=== PATIENT | female | born 1980 | race Caucasian/White ===

== ENCOUNTER 2016-04-18 21:38 | Emergency (ER) | payer MEDICAID, OTHER ==
[~2016-04-18] VITALS: Ht 154.9 cm; Wt 102.0 kg
[~2016-04-18 21:38] MED LIST: HUMA100I SC; LANTINJ SQ; LANTUS2P SC
[2016-04-18 21:41] VITALS: BP 179/89; PULSE 121; RESP 16; TEMP 97.8; O2SAT 96
== END 2016-04-19 00:18 | disposition left against medical advice (07) ==
LOC: NED 21:38
DX: O99.73 Diseases of the skin and subcutaneous tissue complicating the puerperium (principal); Z53.21 Procedure and treatment not carried out due to patient leaving prior to being seen by health care provider
CPT/HCPCS: 99281

== ENCOUNTER 2016-09-05 14:28 | Emergency (ER) | payer MEDICAID ==
[~2016-09-05] VITALS: Ht 157.5 cm; Wt 100.0 kg
[2016-09-05 14:30] VITALS: BP 136/76; PULSE 109; RESP 20; TEMP 97.7; O2SAT 98
--- NOTE | 2016-09-05 15:21 | PD ---
HPI . c section site opening for over 5.5 mts Chief Complaint: Laceration/Skin Injury Time Seen by Provider: 15:21 Travel History International Travel<30 days: No Contact w/Intl Traveler<30days: No Traveled to known affect area: No History of Present Illness HPI 35-year-old female with type 1 diabetes here with complaints of poorly healing C -section incision for over 5 and half months. Patient is followed by [facility] [employer] and was told previously that there might be an abscess here. She was also told that this will have to heal by secondary intention, but tells me that despite waiting the area is still open. She admits to some pain in that area radiating into her mons pubis. She does admit to drainage, but denies any fever or chills. She has no other complaints PFSH Past Medical History Diabetes: Yes Diminished Hearing: No Gestational Age in Weeks: 8 ?: Not LMP: AUG 20 2016 : 1 Para: 0 Past Surgical History Abdominal Surgery: Yes (C SECTION ) Appendectomy: Yes Other Surgery: Yes (OUTER HPV REMOVED ) Social History Alcohol Use: No Tobacco Use: Yes (1/2 ppd) Substance Use: No Allergies-Medications (Allergen,Severity, Reaction): Coded Allergies: No Known Allergies (Verified , 09/05/16) Reported Meds & Prescriptions Reported Meds & Active Scripts Active Bactrim DS (Sulfamethoxazole-Trimethoprim) 800-160 Mg Tab 1 Tab PO BID Lantus Solostar Pen (Insulin Glargine) 100 Units/Ml Pen 10 Units SQ HS 30 Days Humalog 3 ml vial (Insulin Human Lispro) 100 Units/Ml Inj 0 SC ACHS SLIDING SCALE 30 Days Reported Lantus (Insulin Glargine) 100 Units/Ml Inj 20 Unit SC DAILY Humalog 3 ml vial (Insulin Human Lispro) 100 Units/Ml Inj 50 Units SC DAILYAC Review of Systems General / Constitutional: No: Fever Eyes: No: Visual changes HENT: No: Headaches Cardiovascular: No: Chest Pain or Discomfort Respiratory: No: Shortness of Breath Gastrointestinal: No: Abdominal Pain Genitourinary: No: Dysuria Musculoskeletal: No: Pain Skin: Positive Other (c section site opening, drainage), No Rash Neurologic: No: Weakness Psychiatric: No: Depression Endocrine: No: Polydipsia Hematologic/Lymphatic: No: Easy Bruising Physical Exam Narrative GENERAL: AAO x 3, no acute distress, Well-nourished, well-developed patient. SKIN: Warm and dry. No visible rashes or bruising. c section incision, left side lateral small 0.5cm opening with slightly purulent drainage, no foul odor, no definitive abscess seen or felt HEAD: Normocephalic and atraumatic. EYES: No scleral icterus. No injection or drainage. EOM intact, PERRLA ENT: No nasal drainage noted. Mucous membranes pink. Airway patent. NECK: Supple, trachea midline. No JVD. CARDIOVASCULAR: Regular rate and rhythm without murmurs, gallops, or rubs. RESPIRATORY: Breath sounds equal bilaterally. No accessory muscle use. No rhonchi or rales. GASTROINTESTINAL: Abdomen soft, non-tender, nondistended. EXTREMITIES: No cyanosis or edema. BACK: Nontender without obvious deformity. No CVA tenderness. NEURO: CN II-12 intact, PSYCH: AAO x 3, normal affect. Data Data Last Documented VS Vital Signs Date Time Temp Pulse Resp B/P Pulse Ox O2 Delivery O2 Flow Rate FiO2 09/05/16 14:30 97.7 109 20 136/76 98 Room Air Orders Us Soft Tissue (09/05/16 ) Basic Metabolic Panel (Bmp) (09/05/16 15:22) Complete Blood Count With Diff (09/05/16 15:22) Wound Culture And Gram Stain (09/05/16 15:22) Labs Laboratory Tests Test 09/05/16 15:45 White Blood Count 7.0 TH/MM3 Red Blood Count 4.93 MIL/MM3 Hemoglobin 13.8 GM/DL Hematocrit 42.6 % Mean Corpuscular Volume 86.4 FL Mean Corpuscular Hemoglobin 28.1 PG Mean Corpuscular Hemoglobin 32.5 % Concent Red Cell Distribution Width 16.1 % Platelet Count 269 TH/MM3 Mean Platelet Volume 7.8 FL Neutrophils (%) (Auto) 63.0 % Lymphocytes (%) (Auto) 19.7 % Monocytes (%) (Auto) 15.7 % Eosinophils (%) (Auto) 1.2 % Basophils (%) (Auto) 0.4 % Neutrophils # (Auto) 4.4 TH/MM3 Lymphocytes # (Auto) 1.4 TH/MM3 Monocytes # (Auto) 1.1 TH/MM3 Eosinophils # (Auto) 0.1 TH/MM3 Basophils # (Auto) 0.0 TH/MM3 CBC Comment DIFF FINAL Differential Comment Sodium Level 138 MEQ/L Potassium Level 3.9 MEQ/L Chloride Level 104 MEQ/L Carbon Dioxide Level 25.9 MEQ/L Anion Gap 8 MEQ/L Blood Urea Nitrogen 9 MG/DL Creatinine 0.81 MG/DL Estimat Glomerular Filtration 81 ML/MIN Rate Random Glucose 189 MG/DL Calcium Level 7.9 MG/DL MDM Medical Decision Making Medical Screen Exam Complete: Yes Emergency Medical Condition: Yes Medical Record Reviewed: Yes Differential Diagnosis poorly healing wound due to diabetes and poor hygiene, superficial cellulitis, less likely abscess Narrative Course This is a 35-year-old female presenting with a 0.5 cm area of her prior C- section incision that is slow healing. There seems to be very superficial and localized cellulitis to this area. Wound culture, labs and ultrasound have been ordered. I think the location of this surgical incision being overlapped by surrounding belly fat is contributing to the poor healing. It seems this area is constantly moist, which can hinder wound healing. I think there may also be a component of poor hygiene contributing to this. Ultimately I believe that this will eventually heal by secondary intention. Last Impressions Soft Tissue Ultrasound 09/05/16 0000 Signed Impressions: Service Date/Time: August 16:19 - CONCLUSION: 1. No focal sonographic abnormality corresponding to region of concern along the incision in the left lower quadrant. Specifically, no sonographic evidence for abscess. Hussain Rodriguez MD Laboratory Tests Test 09/05/16 15:45 White Blood Count 7.0 TH/MM3 Red Blood Count 4.93 MIL/MM3 Hemoglobin 13.8 GM/DL Hematocrit 42.6 % Mean Corpuscular Volume 86.4 FL Mean Corpuscular Hemoglobin 28.1 PG Mean Corpuscular Hemoglobin 32.5 % Concent Red Cell Distribution Width 16.1 % Platelet Count 269 TH/MM3 Mean Platelet Volume 7.8 FL Neutrophils (%) (Auto) 63.0 % Lymphocytes (%) (Auto) 19.7 % Monocytes (%) (Auto) 15.7 % Eosinophils (%) (Auto) 1.2 % Basophils (%) (Auto) 0.4 % Neutrophils # (Auto) 4.4 TH/MM3 Lymphocytes # (Auto) 1.4 TH/MM3 Monocytes # (Auto) 1.1 TH/MM3 Eosinophils # (Auto) 0.1 TH/MM3 Basophils # (Auto) 0.0 TH/MM3 CBC Comment DIFF FINAL Differential Comment Sodium Level 138 MEQ/L Potassium Level 3.9 MEQ/L Chloride Level 104 MEQ/L Carbon Dioxide Level 25.9 MEQ/L Anion Gap 8 MEQ/L Blood Urea Nitrogen 9 MG/DL Creatinine 0.81 MG/DL Estimat Glomerular Filtration 81 ML/MIN Rate Random Glucose 189 MG/DL Calcium Level 7.9 MG/DL Labs and ultrasound reviewed. There is no evidence of abscess formation. Wound culture was collected. I will go ahead and start Bactrim to cover for MRSA. I've explained to the patient that this is a poor healing wounds secondary diabetes and the location. I recommend she try to keep the areas dry as possible. Patient verbalized understanding of instructions, questions were answered, and thanked me for their care. I advised them if their condition worsens, please return to the nearest emergency room for further care. Diagnosis Primary Impression: Wound dehiscence Patient Instructions: General Instructions Additional Instructions: Please return to emergency department if your symptoms return or worsen. Follow up with your primary care provider. Take medications as prescribed. [place] for worsening signs of infection which include fever, increased redness , increased warmth, purulent drainage, increased swelling or streaking. If any of these develop, please go to the nearest emergency room. Follow-up with her [facility]. Med/Other Pt SpecificInfo: Prescription(s) given Scripts Sulfamethoxazole-Trimethoprim (Bactrim DS)800-160 Mg Tab1 Tab PO BID #20 TAB Prov:Mary Buchanan MD 09/05/16 Disposition: 01 DISCHARGE HOME Condition: Stable Elo Rosario Sep 05, 2016 15:21
[2016-09-05 16:20] LABS: AUTOMATED NEUTROPHIL # 4.4 TH/MM3 (1.8-7.7); BASOPHIL % 0.4 % (0.0-2.0); EOSINOPHIL # 0.1 TH/MM3 (0-0.4); EOSINOPHIL % 1.2 % (0.0-4.0); HEMATOCRIT 42.6 % (35.0-46.0); HEMO FLAGS DIFF FINAL; LYMPH % 19.7 % (9.0-44.0); LYMPHOCYTE # 1.4 TH/MM3 (1.0-4.8); MEAN CELL VOLUME 86.4 FL (80.0-100.0); MEAN CORPUSCULAR HEMOGLOBIN 28.1 PG (27.0-34.0); MEAN CORPUSCULAR HGB CONC 32.5 % (32.0-36.0); MONO % 15.7 % (0.0-8.0); PLATELET COUNT 269 TH/MM3 (150-450); RED BLOOD COUNT 4.93 MIL/MM3 (4.00-5.30); RED CELL DISTRIBUTION WIDTH 16.1 % (11.6-17.2)
[2016-09-05 16:32] LABS: BICARBONATE 25.9 MEQ/L (21.0-32.0)
--- NOTE | 2016-09-05 16:43 | PD ---
Data Data Last Documented VS Vital Signs Date Time Temp Pulse Resp B/P Pulse Ox O2 Delivery O2 Flow Rate FiO2 09/05/16 14:30 97.7 109 20 136/76 98 Room Air Orders Us Soft Tissue (09/05/16 ) Basic Metabolic Panel (Bmp) (09/05/16 15:22) Complete Blood Count With Diff (09/05/16 15:22) Wound Culture And Gram Stain (09/05/16 15:22) Labs Laboratory Tests Test 09/05/16 15:45 White Blood Count 7.0 TH/MM3 Red Blood Count 4.93 MIL/MM3 Hemoglobin 13.8 GM/DL Hematocrit 42.6 % Mean Corpuscular Volume 86.4 FL Mean Corpuscular Hemoglobin 28.1 PG Mean Corpuscular Hemoglobin 32.5 % Concent Red Cell Distribution Width 16.1 % Platelet Count 269 TH/MM3 Mean Platelet Volume 7.8 FL Neutrophils (%) (Auto) 63.0 % Lymphocytes (%) (Auto) 19.7 % Monocytes (%) (Auto) 15.7 % Eosinophils (%) (Auto) 1.2 % Basophils (%) (Auto) 0.4 % Neutrophils # (Auto) 4.4 TH/MM3 Lymphocytes # (Auto) 1.4 TH/MM3 Monocytes # (Auto) 1.1 TH/MM3 Eosinophils # (Auto) 0.1 TH/MM3 Basophils # (Auto) 0.0 TH/MM3 CBC Comment DIFF FINAL Differential Comment Carbon Dioxide Level 25.9 MEQ/L Blood Urea Nitrogen 9 MG/DL Creatinine 0.81 MG/DL Estimat Glomerular Filtration 81 ML/MIN Rate Random Glucose 189 MG/DL Calcium Level 7.9 MG/DL [facility] Supervised Visit with JEFF: Yes Narrative Course The history, exam, and medical decision-making in the associated midlevel provider note were completed with my assistance. I reviewed and agree with the findings presented. I attest that I had a [id number] encounter with the patient on the same day, and personally performed and documented my assessment and findings in the medical record. *My assessment and Findings: This is a 35-year-old female who presents to the emergency department with a poorly hearing Pfannenstiel incision from a C- section several months ago that with some dehiscence and drainage. Patient has a 2 cm dehiscence of her incision with no surrounding erythema, induration and scant discharge. I have a very low suspicion for deeper infection. I think conservative wound care is appropriate. Patient will be discharged home and can follow up with her key account representative following labs and ultrasound. Condition: Stable Mary Buchanan MD Sep 05, 2016 16:43
--- NOTE | 2016-09-05 16:44 | RADRPT ---
EXAM DATE/TIME: 09/05/2016 16:19 [place] COMPARISON: No previous studies available for comparison. INDICATIONS : Post section abscess. MEDICAL HISTORY : Post wound, left lower quadrant. SURGICAL HISTORY : section. Appendectomy. Outer HPV removal. ENCOUNTER: Initial ACUITY: 4-6 months PAIN SCORE: 7/10 LOCATION: Left lower quadrant AREA EVALUATED: Left lower quadrant/pelvis. FINDINGS: No focal sonographic abnormality corresponding to region of concern along the incision in t he left lower quadrant. Specifically, no focal fluid collection. CONCLUSION: 1. No focal sonographic abnormality corresponding to region of concern along the incision i n the left lower quadrant. Specifically, no sonographic evidence for abscess. Hussain Rodriguez MD on September 05, 2016 at 16:40 Board Certified Radiologist. This report was verified electronically.
[2016-09-05 16:45] LABS: POTASSIUM 3.9 MEQ/L (3.5-5.1)
[2016-09-05] MEDS ORDERED: BACT800T5 PO (17:10)
== END 2016-09-05 17:26 | disposition home or self-care (01) ==
LOC: NEPD 14:28
DX: O90.0 Disruption of cesarean delivery wound (principal); O86.0 Infection of obstetric surgical wound; B95.1 Streptococcus, group B, as the cause of diseases classified elsewhere; E10.9 Type 1 diabetes mellitus without complications; Z79.4 Long term (current) use of insulin
CPT/HCPCS: 76999; 80048; 85025; 86403; 87070; 87205